=== PATIENT | male | born 1985 | race African-American/Black ===

== ENCOUNTER 2025-02-11 21:37 | Emergency (ER) | payer SELFPAY ==
[~2025-02-11] VITALS: Ht 180.3 cm; Wt 122.5 kg
[2025-02-11 21:48] VITALS: PULSE 85; RESP 16; TEMP 98.7
[2025-02-11 22:39] LABS: ALBUMIN 3.8 g/dL (3.5-5.0); ANION GAP 15.4 mmol/L (8-16); BILIRUBIN,TOTAL 0.4 mg/dL (0.2-1.2); CALCIUM 9.5 mg/dL (8.4-10.2); CREATININE, SERUM 1.62 mg/dL (0.72-1.25); POTASSIUM 4.4 mmol/L (3.5-5.1); TOTAL PROTEIN 7.6 g/dL (6.5-8.1)
[2025-02-11 22:41] LABS: BASOPHILS # (AUTO) 0.1 (0.0-0.1); BASOPHILS % 0.8 % (0.0-1.0); EOSINOPHILS # (AUTO) 0.2 (0.0-0.4); EOSINOPHILS % 2.4 % (0.0-6.0); HEMATOCRIT 40.4 % (38.2-49.6); LYMPHOCYTES # (AUTO) 2.3 (1.0-3.2); MEAN CORPUSCULAR HEMOGLOBIN 27.7 pg (28-32); MEAN CORPUSCULAR HGB CONC 32.2 g/dL (31-35); MEAN CORPUSCULAR VOLUME 86.1 fL (81-99); MONOCYTES # (AUTO) 0.5 (0.2-0.8); MONOCYTES % 8.1 % (4.4-11.3); NEUTROPHILS # (AUTO) 3.3 (2.1-6.9); NEUTROPHILS % 52.4 % (38.7-80.0); PLATELET COUNT 236 x10e3/uL (140-360); RED BLOOD COUNT 4.69 x10e6/uL (4.3-5.7); RED CELL DISTRIBUTION WIDTH 13.9 % (11.7-14.4)
[2025-02-11 22:44] LABS: TROPONIN I 0.009 ng/mL (0-0.300)
[2025-02-12 01:05] VITALS: BP 120/87; PULSE 66; RESP 18; TEMP 98.5; O2SAT 100
== END 2025-02-12 01:06 | disposition home or self-care (01) ==
LOC: ER 22:46
DX: R25.2 Cramp and spasm (principal); I45.6 Pre-excitation syndrome
CPT/HCPCS: 36415; 71045; 80053; 82550; 84484; 85025; 93005; 99283